=== PATIENT | female | born 1985 | race Caucasian/White ===

== ENCOUNTER 2023-06-30 17:02 | Emergency (ER) | payer OTHER, SELFPAY ==
[2023-06-30 17:15] VITALS: BP 131/84; PULSE 77; RESP 18; TEMP 36.4; O2SAT 97; BMI 37.1
[2023-06-30 18:33] LABS: Appearance Urine Slightly Cloudy (Clear); Bilirubin Urine Negative (Negative); Blood Urine Negative (Negative); Color Urine Yellow (Yellow); Glucose Urine Negative (Negative); Ketones Urine Negative (Negative); Leukocyte Esterase Urine Trace (Negative); Nitrite Urine Negative (Negative); Protein Urine Negative (Negative); Specific Gravity Urine >= 1.030 (1.000-1.030); Urobilinogen Urine 0.2 (0.2-1.0)
--- NOTE | 2023-06-30 18:42 | US_ITS ---
Patient: ERASTO GTZ Facility:?[facility] Patient ID:?[id number] Site Patient ID:?[id number]. Site :?[id number] Study:?US-Abdomen RUQ-06/30/2023 8:23:35 PM Ordering Physician:Patricia Hendrickson Final Report: INDICATION: Right-sided abdominal pain. TECHNIQUE: Ultrasound abdomen limited. Sonographic images of the right upper quadrant were obtained using roman-scale and color Doppler images. COMPARISON: CT abdomen and pelvis from the same day. FINDINGS: Liver: Normal in size and echotexture. No suspicious masses. No intrahepatic biliary dilatation. Gallbladder: 6 mm adherent stone versus polyp along the posterior gallbladder wall. Possible small volume biliary sludge. Normal wall thickness. No pericholecystic fluid. Common bile duct: 3 mm. Pancreas: Unremarkable. Right kidney: Normal in size. 3.9 cm simple cyst no suspicious masses, stones, or hydronephrosis. Vasculature: Proximal abdominal aorta and IVC are unremarkable. IMPRESSION: 1. 6 mm adherent stone versus polyp along the posterior gallbladder wall. 2. Possible small volume biliary sludge within the gallbladder lumen. No evidence for cholecystitis. Dictated by Jefferson Ochoa MD @ 06/30/2023 8:47:14 PM Signed by:?Jefferson Ochoa MD @06/30/2023 8:47:14 PM (Electronic Signature)
[2023-06-30 18:59] LABS: RBC Urine 0-2 (0-2)
[2023-06-30 19:00] LABS: Squamous Epithelial Cell Urine Moderate (None-Few)
--- NOTE | 2023-06-30 19:04 | ED.ABDPAIN ---
HPI - Abdominal Pain General Date Seen: 06/30/23 Chief Complaint: Abdominal Pain Stated Complaint: R side abdominal pain Time Seen by Provider: 06/30/23 17:45 Source: patient Mode of arrival: ambulatory Limitations: no limitations History of Present Illness HPI narrative: Patient is a 38-year-old female with no pertinent medical problems presenting to the emergency department for right-sided abdominal pain. She states pain started yesterday during the middle of the night. Says the pain woke her up but she is able back to bed. Pain continued all of yesterday and into today. Describes it as a sharp 6/10 pain on her right side of her abdomen. Only previous abdominal surgeries were . Has not taking anything for pain. States she has been eating and drinking without issues. Denies fevers, chills, chest pain, shortness of breath, diarrhea, constipation, dysuria. Pain does not worsen with eating. No history of gallbladder or liver disease. No history of kidney stones. Does not remember any trauma or recent heavy lifting. No other concerns at this time other than the pain. Related Data Home Medications Medication Instructions Recorded Confirmed tvrizqnuvx-eovnqhyohnolo-yikyymdd 1 tab PO Q4H PRN headache 06/30/23 06/30/23 50 mg-325 mg-40 mg tablet enoxaparin 100 mg/mL subcutaneous mg subcut 06/30/23 syringe enoxaparin 40 mg/0.4 mL mg subcut 06/30/23 subcutaneous syringe enoxaparin 80 mg/0.8 mL mg subcut 06/30/23 subcutaneous syringe sertraline 100 mg tablet 150 mg PO DAILY 06/30/23 06/30/23 Allergies Allergy/AdvReac Type Severity Reaction Status Date / Time No Known Drug Allergies Allergy Verified 06/30/23 18:34 Review of Systems Status of ROS Reports: 10 or more systems reviewed and unremarkable except as noted in History and below PFS PFS Social History Smoking Status: Never smoker Do you use any of these nicotine containing products: None Second hand tobacco smoke exposure: No How often do you have a drink containing alcohol: never AUDIT-C Alcohol total score: 0 Non-prescribed substance use: denies use service: No Exam Narrative: Exam Narrative: Const: Well-nourished, Well-developed, in mild distress Eyes: PERRL, no conjunctival injection, and symmetrical lids HENT: Atraumatic external nose and ears. Moist mucous membranes. Neck: Symmetric, trachea midline, No thyromegaly. CVS: RRR, No murmurs or gallops. Peripheral pulses 2+ and equal in all extremities RESP: Unlabored respiratory effort. Clear to auscultation bilaterally. GI: Notably tender on the right side of her abdomen and slightly going into the flank. Nondistended, No rebound or guarding. MSK:Extremities w/o deformity, Normal Active ROM Skin: Warm, Dry. No rashes or lesions. Neuro: Normal Muscle tone, No focal neurological deficits. Psych: Awake, Alert, & Oriented x3. Appropriate mood and affect. Const: Vital Signs, click to edit/add: Vital Signs - 24 hr 06/30/23 17:15 Temperature 97.5 F L Pulse Rate [Right Pulse Oximeter] 77 Respiratory Rate 18 Blood Pressure [Ri ght Upper Arm] 131/84 Pulse Oximetry 97 Oxygen Delivery Me thod Room Air Course Vital Signs Vital signs: Initial Vital Signs Temperature 97.5 F L 06/30/23 17:15 Temperature Source Temporal Artery Scan 06/30/23 17:15 Pulse Rate 77 06/30/23 17:15 Pulse Rhythm Regular 06/30/23 17:15 Pulse Strength 3+ Normal 06/30/23 17:15 Respiratory Rate 18 06/30/23 17:15 Blood Pressure 131/84 06/30/23 17:15 Blood Pressure Mean 99 06/30/23 17:15 Pulse Oximetry 97 06/30/23 17:15 Oxygen Delivery Method Room Air 06/30/23 17:15 Vital Signs Temperature 97.5 F L 06/30/23 17:15 Pulse Rate 77 06/30/23 17:15 Respiratory Rate 18 06/30/23 17:15 Blood Pressure 131/84 06/30/23 17:15 Pulse Oximetry 97 06/30/23 17:15 Oxygen Delivery Method Room Air 06/30/23 17:15 Temperature 97.5 F L 06/30/23 17:15 Pulse Rate 77 06/30/23 17:15 Respiratory Rate 18 06/30/23 17:15 Blood Pressure 131/84 06/30/23 17:15 Pulse Oximetry 97 06/30/23 17:15 Oxygen Delivery Method Room Air 06/30/23 17:15 MDM - Abdominal Pain MDM Narrative Medical decision making narrative: Patient is a 38-year-old female presenting for right-sided abdominal pain. Pain has been going on for over a day now. Do okay showing did do a right upper quadrant ultrasound right away which shows a possible polyp versus gallstone but is not appear to be blocking anything and no signs of cholecystitis. To this being now on diagnostic we will do a CT scan to look for other causes of her pain. Differential includes nephrolithiasis, colitis, gastroenteritis, hepatic disease. Also ordered a CBC, CMP, lipase, urinalysis. Given Toradol for pain Pain improved with Toradol. Her lab work returned showing no concerning abnormalities. CT scan reviewed by myself and the radiologist shows a small region around laboratory stranding which appears to be an omental infarct. She is otherwise doing well and this can be treated conservatively with NSAIDs. While this could be a clot in she is on Lovenox and not believe is necessary to further work her up. They do not know specifically of for causes omental infarcts and even if this is the clot is likely to be a very small and unlikely to be a sign of worsening systemic disease. I informed her to return to the emergency department if symptoms are worsening or she starts to show signs of infection. She is agreeable and will be discharged. Lab Data Labs: Lab Results 06/30/23 06/30/23 06/30/23 Range/Units 16:21 18:23 19:33 WBC 6.69 (4.50-11.00) K/uL RBC 4.51 (4.00-5.20) m/uL Hgb 13.4 (12.0-16.0) gm/dL Hct 38.9 (33.0-51.0) % MCV 86 (80-100) fL MCH 30 (26-34) pg MCHC 34 (32-36) gm/dL RDW Coeff of Samia 12.7 (11.5-15.5) % Plt Count 222 (140-440) K/uL Neut % (Auto) 53.8 (42.0-72.0) % Lymph % (Auto) 37.8 (20-44) % [place] % (Auto) 7.2 (0.0-11.0) % Eos % (Auto) 1.0 (0.0-7.0) % Baso % (Auto) 0.1 (0.0-3.0) % Neut # (Auto) 3.59 (1.7-7.0) K/uL Lymph # (Auto) 2.53 (0.90-2.90) K/uL [place] # (Auto) 0.50 (0.00-0.90) K/UL Eos # (Auto) 0.07 (0.00-0.50) K/uL Baso # (Auto) 0.01 (0.00-0.30) K/uL Abs Immat Gran (auto) 0.01 (0.00-0.30) K/uL Imm/Tot Granulo (auto) 0.1 % Sodium 139 (135-149) mmol/L Potassium 3.5 L (3.6-5.1) mmol/L Chloride 107 (96-114) mmol/L Carbon Dioxide 24 (20-32) mmol/L Anion Gap 8 (7-15) mEq/L BUN 10 (5-24) mg/dL Creatinine 0.7 (0.5-1.5) mg/dL Estimated Creat Clear 87.03 Estimated GFR 114 ml/min Glucose 94 (60-115) mg/dL Calcium 8.9 (8.4-10.6) mg/dL Total Bilirubin 0.5 (0.1-1.5) mg/dL AST 19 (12-35) U/L ALT 11 (4-35) U/L Alkaline Phosphatase 156 H (40-150) U/L Total Protein 7.4 (6.0-8.3) g/dL Albumin 4.4 (3.3-5.0) g/dL Lipase 60 (23-300) U/L Urine Color Yellow (Yellow) Urine Appearance Slightly Cloudy A (Clear) Urine pH 6.0 (5.0-8.5) Ur Specific [place] >= 1.030 (1.000-1.030) Urine Protein Negative (Negative) Urine Glucose (UA) Negative (Negative) Urine Ketones Negative (Negative) Urine Blood Negative (Negative) Urine Nitrite Negative (Negative) Urine Bilirubin Negative (Negative) Urine Urobilinogen 0.2 (0.2-1.0) Ur Leukocyte Esterase Trace A (Negative) Urine RBC 0-2 (0-2) Urine WBC 2-5 (0-5) Ur Squamous Epith Cells Moderate A (None-Few) Urine Bacteria None (None) Urine HCG, Qual Negative (Negative) 06/30/23 Range/Units 19:33 WBC (4.50-11.00) K/uL RBC (4.00-5.20) m/uL Hgb (12.0-16.0) gm/dL Hct (33.0-51.0) % MCV (80-100) fL MCH (26-34) pg MCHC (32-36) gm/dL RDW Coeff of Samia (11.5-15.5) % Plt Count (140-440) K/uL Neut % (Auto) (42.0-72.0) % Lymph % (Auto) (20-44) % [place] % (Auto) (0.0-11.0) % Eos % (Auto) (0.0-7.0) % Baso % (Auto) (0.0-3.0) % Neut # (Auto) (1.7-7.0) K/uL Lymph # (Auto) (0.90-2.90) K/uL [place] # (Auto) (0.00-0.90) K/UL Eos # (Auto) (0.00-0.50) K/uL Baso # (Auto) (0.00-0.30) K/uL Abs Immat Gran (auto) (0.00-0.30) K/uL Imm/Tot Granulo (auto) % Sodium (135-149) mmol/L Potassium (3.6-5.1) mmol/L Chloride (96-114) mmol/L Carbon Dioxide (20-32) mmol/L Anion Gap (7-15) mEq/L BUN (5-24) mg/dL Creatinine (0.5-1.5) mg/dL Estimated Creat Clear Estimated GFR ml/min Glucose (60-115) mg/dL Calcium (8.4-10.6) mg/dL Total Bilirubin (0.1-1.5) mg/dL AST (12-35) U/L ALT (4-35) U/L Alkaline Phosphatase (40-150) U/L Total Protein (6.0-8.3) g/dL Albumin (3.3-5.0) g/dL Lipase Cancelled (23-300) U/L Urine Color (Yellow) Urine Appearance (Clear) Urine pH (5.0-8.5) Ur Specific [place] (1.000-1.030) Urine Protein (Negative) Urine Glucose (UA) (Negative) Urine Ketones (Negative) Urine Blood (Negative) Urine Nitrite (Negative) Urine Bilirubin (Negative) Urine Urobilinogen (0.2-1.0) Ur Leukocyte Esterase (Negative) Urine RBC (0-2) Urine WBC (0-5) Ur Squamous Epith Cells (None-Few) Urine Bacteria (None) Urine HCG, Qual (Negative) Imaging Data CT scan abdomen and pelvis: Attestation: I have reviewed the pertinent imaging results. Radiologist's impression: 1. Normal appendix. 2. Small region of inflammatory stranding in the right upper quadrant beneath the inferior margin of the right hepatic lobe separate from the ascending colon, most likely representing omental infarct. Epiploic appendagitis could appear similar. Please note that all CT scans at this facility use dose modulation, iterative reconstruction, and/or weight-based dosing when appropriate to reduce radiation dose to as low as reasonably achievable. Dictated by Jefferson Ochoa MD @ 06/30/2023 8:34:50 PM US - abdomen: Attestation: I have reviewed the pertinent imaging results. Radiologist's impression: 1. 6 mm adherent stone versus polyp along the posterior gallbladder wall. 2. Possible small volume biliary sludge within the gallbladder lumen. No evidence for cholecystitis. Discharge Plan Discharge Clinical Impression: Omental infarction Patient Disposition: Home, Self-Care Condition: Stable Instructions: Abdominal Pain (ED) Additional Instructions: Take NSAIDs for pain. You have an omental infarct. This is an infact in the blood vessels of your omentum, a covering over the abdominal organs. Symptoms should go away in the next week or 2. If symptoms worsen return to emergency department for re-evaluation. Prescriptions: No Action sertraline 100 mg tablet 150 mg PO DAILY xyywletese-zkjniqqhajdwy-syiu 50-325-40 mg tablet 1 tab PO Q4H PRN (Reason: headache) enoxaparin 80 mg/0.8 mL syringe subcut enoxaparin 100 mg/mL syringe subcut enoxaparin 40 mg/0.4 mL syringe subcut Follow Up/Referrals: Edward Luna MD [Primary Care Provider] - Stand Alone Forms: [employer] Info Instructions
--- NOTE | 2023-06-30 19:23 | CT_ITS ---
Patient: ERASTO GTZ Facility:?[facility] Patient ID:?[id number] Site Patient ID:?[id number]. Site :?1985 Study:?CT-Abdomen/Pelvis w/ 99cc [id number]-130-8/11/2024 8:16:20 PM Ordering Physician:Patricia Hendrickson Final Report: INDICATION: Right-sided abdominal pain. TECHNIQUE: CT abdomen and pelvis acquired with 99 cc Isovue 370 IV contrast. COMPARISON: CT abdomen and pelvis 08/05/2018. FINDINGS: Lower chest: Unremarkable. Liver: Unremarkable. Normal in size and attenuation. No suspicious masses. Gallbladder and bile ducts: Unremarkable. No stones or inflammation. No biliary dilatation. Pancreas: Unremarkable. No mass or inflammation. Spleen: Unremarkable. Normal in size. No masses. Adrenal glands: Unremarkable. No nodules. Kidneys: Simple right renal cyst. No suspicious masses, stones, or hydronephrosis. GI tract: Unremarkable. Normal in caliber. No sign of mass or inflammation. Normal appendix. Vasculature: Abdominal aorta is normal in caliber. Mesenteric arteries are patent. Lymph nodes: No lymphadenopathy. Peritoneum/Abdominal Wall: Small region of inflammatory stranding in the right upper quadrant beneath the inferior margin of the right hepatic lobe separate from the ascending colon. No free air or significant free fluid. Pelvis: Unremarkable. Bones: Unremarkable for age. IMPRESSION: 1. Normal appendix. 2. Small region of inflammatory stranding in the right upper quadrant beneath the inferior margin of the right hepatic lobe separate from the ascending colon, most likely representing omental infarct. Epiploic appendagitis could appear similar. Please note that all CT scans at this facility use dose modulation, iterative reconstruction, and/or weight-based dosing when appropriate to reduce radiation dose to as low as reasonably achievable. Dictated by Jefferson Ochoa MD @ 06/30/2023 8:34:50 PM Signed by:?Jefferson Ochoa MD @06/30/2023 8:34:50 PM (Electronic Signature)
[2023-06-30 20:01] LABS: Basophils Absolute Auto 0.01 K/uL (0.00-0.30); Basophils Percent Auto 0.1 % (0.0-3.0); Eosinophils Absolute Auto 0.07 K/uL (0.00-0.50); Hematocrit 38.9 % (33.0-51.0); Hemoglobin* 13.4 gm/dL (12.0-16.0); Immature Granulocytes Abs Auto 0.01 K/uL (0.00-0.30); Immature Granulocytes Pct Auto 0.1 %; Lymphocytes Absolute Auto 2.53 K/uL (0.90-2.90); Lymphocytes Percent Auto 37.8 % (20-44); Mean Corpuscular HGB Conc 34 gm/dL (32-36); Mean Corpuscular Hemoglobin 30 pg (26-34); Mean Corpuscular Volume 86 fL (80-100); Monocytes Percent Auto 7.2 % (0.0-11.0); Neutrophils Absolute Auto 3.59 K/uL (1.7-7.0); Neutrophils Percent Auto 53.8 % (42.0-72.0); Platelet Count* 222 K/uL (140-440); RDW Coefficient of Variation % 12.7 % (11.5-15.5); Red Blood Count 4.51 m/uL (4.00-5.20); White Blood Count* 6.69 K/uL (4.50-11.00)
[2023-06-30 20:03] LABS: Ur HCG Qualitative* Negative (Negative)
[2023-06-30 20:05] LABS: Slide Review Reflex No
[2023-06-30 20:24] LABS: Albumin* 4.4 g/dL (3.3-5.0)
[2023-06-30 20:25] LABS: Chloride* 107 mmol/L (96-114); Potassium* 3.5 mmol/L (3.6-5.1); Sodium* 139 mmol/L (135-149)
[2023-06-30 20:27] LABS: Alkaline Phosphatase* 156 U/L (40-150); Anion Gap 8 mEq/L (7-15); Aspartate Amino Transferase* 19 U/L (12-35); Bilirubin Total* 0.5 mg/dL (0.1-1.5); Blood Urea Nitrogen* 10 mg/dL (5-24); Carbon Dioxide* 24 mmol/L (20-32); Creatinine* 0.7 mg/dL (0.5-1.5); Est. Creatinine Clearance* 87.03; Estimated Glomerular Filt Rate 114 ml/min; Total Protein* 7.4 g/dL (6.0-8.3)
[2023-06-30 20:28] LABS: Alanine Aminotransferase* 11 U/L (4-35); Calcium* 8.9 mg/dL (8.4-10.6); Glucose* 94 mg/dL (60-115); Lipase* 60 U/L (23-300)
== END 2023-06-30 22:00 | disposition home or self-care (01) ==
PROVIDERS: Emergency Provider Student in an Organized Health Care Education/Training Program; PCP Family Medicine
DX: K55.069 Acute infarction of intestine, part and extent unspecified (principal)
CPT/HCPCS: 36415; 74177; 76705; 80053; 81001; 81025; 83690; 85025; 87086; 99283; 99284; Q9967

== ENCOUNTER 2023-09-29 09:50 | Outpatient (CLI) | payer OTHER, SELFPAY | END 2023-09-29 09:51 | disposition home or self-care (01) | LOC: NFLDUCREF 09:50 | PROVIDERS: PCP Family Medicine; Visit Provider Nurse Practitioner | DX: M79.674 Pain in right toe(s) (principal) | CPT/HCPCS: 84550 ==